=== PATIENT | female | born 1965 | race American Indian/Alaskan Native ===

== ENCOUNTER 2016-04-06 08:56 | Emergency (ER) | payer BC ==
[2016-04-06 09:37] VITALS: BP 139/96
[2016-04-06] MEDS ORDERED: TRIMOX PO ONE ×2 (10:04→10:38)
[2016-04-06] MEDS ORDERED: MOTRIN PO ONE (10:05)
--- NOTE | 2016-04-06 10:05 | Emergency Department Report ---
ED ENT HPI - General Chief complaint: Earache Stated complaint: LFT EAR PAIN Time Seen by Provider: 04/06/16 10:01 Source: patient Mode of arrival: Ambulatory Limitations: No Limitations - History of Present Illness Initial comments: 50-year-old female with past medical history hypertension diabetes hypercholesterolemia surgical history of gallbladder removal and appendectomy myomectomy questionable if she menopausal comes in for complaint of left ear pain since Wednesday night. She reports that pain started off as achy now sharp and shooting it comes and goes. He is taken Tylenol and Motrin without any relief. MD complaint: ear pain - Related Data Previous Rx's Medication Instructions Recorded Last Taken Type Amoxicillin [Amoxicillin TAB] 875 mg PO BID #14 tablet 04/06/16 Unknown Rx Ibuprofen [Motrin 800 MG tab] 800 mg PO Q8HR PRN #30 tablet 04/06/16 Unknown Rx Allergies Allergy/AdvReac Type Severity Reaction Status Date / Time No Known Allergies Allergy Unverified 10/10/15 08:56 ED Dental HPI - General Chief complaint: Earache Stated complaint: LFT EAR PAIN Time Seen by Provider: 04/06/16 10:01 Source: patient Mode of arrival: Ambulatory Limitations: No Limitations - Related Data Previous Rx's Medication Instructions Recorded Last Taken Type Amoxicillin [Amoxicillin TAB] 875 mg PO BID #14 tablet 04/06/16 Unknown Rx Ibuprofen [Motrin 800 MG tab] 800 mg PO Q8HR PRN #30 tablet 04/06/16 Unknown Rx Allergies Allergy/AdvReac Type Severity Reaction Status Date / Time No Known Allergies Allergy Unverified 10/10/15 08:56 ED Review of Systems ROS: Stated complaint: LFT EAR PAIN Other details as noted in HPI Constitutional: no symptoms reported ENT: ear pain (left ear). denies: throat pain, dental pain, congestion Respiratory: denies: cough (left ear), shortness of breath Cardiovascular: denies: chest pain ED Past Medical Hx - Past Medical History Previous Medical History?: Yes Hx Hypertension: Yes Hx Diabetes: Yes Additional medical history: Elevated Cholesterol - Surgical History Past Surgical History?: Yes Hx Cholecystectomy: Yes Hx Appendectomy: Yes - Social History Smoking Status: Never Smoker Substance Use Type: None - Medications Home Medications: Home Medications Medication Instructions Recorded Confirmed Last Taken Type Amoxicillin [Amoxicillin TAB] 875 mg PO BID #14 tablet 01/16/17 Unknown Rx Ibuprofen [Motrin 800 MG tab] 800 mg PO Q8HR PRN #30 tablet 04/06/16 Unknown Rx ED Physical Exam - General Limitations: No Limitations General appearance: alert, in no apparent distress - Head Head exam: Present: atraumatic, normocephalic - Expanded ENT Exam Expanded TM/Canal exam: Bulging: Left TM, Loss of Landmarks: Left TM - Neck Neck exam: Absent: tenderness, lymphadenopathy ED Course Vital Signs 04/06/16 09:35 Temperature 98.6 F Pulse Rate 64 Respiratory 16 Rate Blood Pressure 139/96 O2 Sat by Pulse 100 Oximetry ED Medical Decision Making - Medical Decision Making Patient's been evaluated with his provider in fast track. Based on physical examination noticed that she has a left ear otitis media. We will treat patient accordingly with amoxicillin 875 mg twice a day for 10 days. We will give her first dose in fast track as well as ibuprofen 800 mg now and this discharged her on ibuprofen 800 mg 3 times a day when necessary for the pain. Patient will need to follow-up the primary care provider he does not get better within 3-5 days. He realized understanding. Critical care attestation.: If time is entered above; I have spent that time in minutes in the direct care of this critically ill patient, excluding procedure time. ED Disposition Clinical Impression: Otitis media Qualifiers: Otitis media type: suppurative Laterality: left Chronicity: acute Spontaneous tympanic membrane rupture: without spontaneous rupture Disposition: DISCHARGED TO HOME OR SELFCARE Is pt being admited?: No Does the pt Need Aspirin: No Condition: Stable Instructions: Otitis Media (ED) Additional Instructions: Complete antibiotics as prescribed. Use ibuprofen when necessary for pain. Support and to follow her primary care doctor in 3-5 days if does not improve or gets worse. Prescriptions: Amoxicillin [Amoxicillin TAB] 875 mg PO BID #14 tablet Ibuprofen [Motrin 800 MG tab] 800 mg PO Q8HR PRN #30 tablet PRN Reason: Pain Referrals: SHELLI SINGLETON MD [Staff Physician] - 3-5 Days Forms: Work/School Release Form(ED)
== END 2016-04-06 10:41 | disposition home or self-care (01) ==
LOC: ED 08:56
DX: H66.002 Acute suppurative otitis media without spontaneous rupture of ear drum, left ear (principal); I10 Essential (primary) hypertension; E11.9 Type 2 diabetes mellitus without complications; E78.00 Pure hypercholesterolemia, unspecified
CPT/HCPCS: 99282

== ENCOUNTER 2016-10-09 08:28 | Outpatient (CLI) | payer BC ==
--- NOTE | 2016-10-09 08:58 | Mammography Report ---
Bilateral mammogram: Compared to 10/10/15. CAD study utilized. Findings: Predominance of adipose tissue bilaterally. No mass or microcalcification. Benign axillary nodes. Impression: Benign findings. Annual followup recommended. BI-RADS CATEGORY: 2 = Benign ACR BI-RADS MAMMOGRAPHIC CODES: 0 = Needs additional imaging evaluation; 1 = Negative; 2 = Benign; 3 = Probably benign; 4 = Suspicious; 5 = Malignant; 6 = Known biopsy-proven malignancy COMMENT: 1. Dense breast tissue, i.e., adenosis, fibrocystic changes, etc., may obscure an underlying neoplasm. 2. Approximately 10% of cancers are not detected with mammography. 3. A negative mammography report should not delay biopsy if a clinically suspicious mass is present. COMMENT: Patient follow-up letters are generated in [employer].
== END 2016-10-09 08:29 | disposition home or self-care (01) ==
LOC: MAMMO 08:28
PROVIDERS: ATTEND Obstetrics & Gynecology
DX: Z12.31 Encounter for screening mammogram for malignant neoplasm of breast (principal); I10 Essential (primary) hypertension
CPT/HCPCS: 77067; G0202

== ENCOUNTER 2017-10-15 08:03 | Outpatient (CLI) | payer BC ==
--- NOTE | 2017-10-15 08:58 | Mammography Report ---
Bilateral mammogram: Compared to 10/09/16. CAD study utilized. Findings: Predominance of adipose tissue bilaterally. No mass or microcalcification. Benign calcifications. Benign axilla. Impression: Benign findings. Annual followup recommended. BI-RADS CATEGORY: 2 = Benign ACR BI-RADS MAMMOGRAPHIC CODES: 0 = Needs additional imaging evaluation; 1 = Negative; 2 = Benign; 3 = Probably benign; 4 = Suspicious; 5 = Malignant; 6 = Known biopsy-proven malignancy COMMENT: 1. Dense breast tissue, i.e., adenosis, fibrocystic changes, etc., may obscure an underlying neoplasm. 2. Approximately 10% of cancers are not detected with mammography. 3. A negative mammography report should not delay biopsy if a clinically suspicious mass is present. COMMENT: Patient follow-up letters are generated in [employer].
== END 2017-10-15 08:04 | disposition home or self-care (01) ==
LOC: MAMMO 08:03
PROVIDERS: ATTEND Obstetrics & Gynecology
DX: Z12.31 Encounter for screening mammogram for malignant neoplasm of breast (principal); I10 Essential (primary) hypertension; Z90.49 Acquired absence of other specified parts of digestive tract; Z90.89 Acquired absence of other organs
CPT/HCPCS: 77067

== ENCOUNTER 2018-10-18 08:55 | Outpatient (CLI) | payer BC ==
--- NOTE | 2018-10-18 11:04 | Mammography Report ---
BILATERAL DIGITAL SCREENING MAMMOGRAM WITH CAD INDICATION: Routine screening mammography. TECHNIQUE: Digital bilateral 2D mammography was obtained in the craniocaudal and mediolateral obliq ue projections. This examination was interpreted with the benefit of Computer-Aided Detection analysi s. COMPARISON: 10/15/2017 FINDINGS: Breast Density: The breasts are heterogeneously dense, which may obscure small masses. No mass, architectural distortion or suspicious calcifications. IMPRESSION:No mammographic evidence of malignancy. BI-RADS Category 1: Negative. No mammographic evidence of malignancy. Recommend routine screening m ammography in one year. A "normal" or negative report should not discourage follow up or biopsy of a clinically significant f inding. A written summary of these findings will be mailed to the patient. The patient will be entered into a mammography reporting system which will generate a reminder letter for the patient's next appointmen t at the appropriate interval. The [employer] recommends yearly mammograms starting at age 40 and continuing as l beba as a woman is in good health. Breast MRI is recommended for women with an approximate 20-25% or greater lifetime risk of breast cancer, including women with a strong family history of breast or ova sadia cancer or who have been treated for Hodgkin's disease. Signer Name: Uvaldo Jj MD Signed: 10/18/2018 10:59 AM Workstation Name: [id number]
== END 2018-10-18 08:56 | disposition home or self-care (01) ==
LOC: MAMMO 08:55
PROVIDERS: ATTEND Obstetrics & Gynecology
DX: Z12.31 Encounter for screening mammogram for malignant neoplasm of breast (principal); I10 Essential (primary) hypertension
CPT/HCPCS: 77067

== ENCOUNTER 2019-10-25 09:55 | Outpatient (CLI) | payer BC ==
--- NOTE | 2019-10-25 12:14 | Mammography Report ---
DIGITAL SCREENING MAMMOGRAM WITH CAD, 10/25/2019 INDICATION: Routine screening mammography. TECHNIQUE: Digital bilateral 2D mammography was obtained in the craniocaudal and mediolateral obliq ue projections. This examination was interpreted with the benefit of Computer-Aided Detection analysi s. COMPARISON: 10/18/2018, 10/16/2007 FINDINGS: Breast Density: The breasts are heterogeneously dense, which may obscure small masses. There is no evidence of dominant mass, suspicious calcifications or architectural distortion in eithe r breast. IMPRESSION: Follow up recommendation: Routine yearly BI-RADS Category 1: Negative. A "normal" or negative report should not discourage follow up or biopsy of a clinically significant f inding. A written summary of these findings will be mailed to the patient. The patient will be entered into a mammography reporting system which will generate a reminder letter for the patient's next appointmen t at the appropriate interval. The [employer] recommends yearly mammograms starting at age 40 and continuing as l beba as a woman is in good health. Breast MRI is recommended for women with an approximate 20-25% or greater lifetime risk of breast cancer, including women with a strong family history of breast or ova sadia cancer or who have been treated for Hodgkin's disease. Signer Name: Marques Cruz MD Signed: 10/25/2019 12:10 PM Workstation Name: [id number]
== END 2019-10-25 09:56 | disposition home or self-care (01) ==
LOC: MAMMO 09:55
PROVIDERS: ATTEND Obstetrics & Gynecology
DX: Z12.31 Encounter for screening mammogram for malignant neoplasm of breast (principal)
CPT/HCPCS: 77067

== ENCOUNTER 2020-10-31 08:03 | Outpatient (CLI) | payer BC ==
--- NOTE | 2020-10-31 11:01 | Mammography Report ---
DIGITAL SCREENING MAMMOGRAM WITH CAD, 10/31/2020 CLINICAL INFORMATION / INDICATION: Routine screening mammography. SCREENING MAMMOGRAM TECHNIQUE: Digital bilateral 2D mammography was obtained in the craniocaudal and mediolateral obliqu e projections. This examination was interpreted with the benefit of Computer-Aided Detection analysis . COMPARISON: 10/25/2019 FINDINGS: Breast Density: There are scattered areas of fibroglandular density. No dominant mass, suspicious calcifications, or architectural distortion in either breast. IMPRESSION: No mammographic evidence of malignancy. Follow up recommendation: Routine yearly BI-RADS Category 1: Negative. A "normal" or negative report should not discourage follow up or biopsy of a clinically significant f inding. A written summary of these findings will be mailed to the patient. The patient will be entered into a mammography reporting system which will generate a reminder letter for the patient's next appointmen t at the appropriate interval. The [employer] recommends yearly mammograms starting at age 40 and continuing as l beba as a woman is in good health. Breast MRI is recommended for women with an approximate 20-25% or greater lifetime risk of breast cancer, including women with a strong family history of breast or ova sadia cancer or who have been treated for Hodgkin's disease. Signer Name: Guillermo Amador MD Signed: 10/31/2020 10:56 AM Workstation Name: [id number]
== END 2020-10-31 08:04 | disposition home or self-care (01) ==
LOC: MAMMO 08:03
PROVIDERS: ATTEND Obstetrics & Gynecology
DX: Z12.31 Encounter for screening mammogram for malignant neoplasm of breast (principal)
CPT/HCPCS: 77067

== ENCOUNTER 2021-11-10 08:58 | Outpatient (CLI) | payer BC ==
--- NOTE | 2021-11-12 10:04 | Mammography Report ---
DIGITAL SCREENING MAMMOGRAM WITH CAD, 11/10/2021 CLINICAL INFORMATION / INDICATION: Routine screening mammography. SCREENING MAMMOGRAM TECHNIQUE: Digital bilateral 2D mammography was obtained in the craniocaudal and mediolateral obliqu e projections. This examination was interpreted with the benefit of Computer-Aided Detection analysis . COMPARISON: October 31, 2020, October 25, 2019, October 18, 2018 FINDINGS: Breast Density: There are scattered areas of fibroglandular density. No dominant mass, suspicious calcifications, or architectural distortion in the right breast. There is a focal asymmetry noted within the anterior/middle third of the left central, slightly upper breast. This focal asymmetry is approximately 4 to 6 cm from the nipple. IMPRESSION: Indeterminate focal asymmetry within the anterior/middle third of the left central, sligh tly upper breast. Spot compression views recommended for further evaluation. Follow up recommendation: Special View: Spot Compression BI-RADS Category 0: INCOMPLETE. Needs additional imaging evaluation and/or prior mammograms for etta rison. A "normal" or negative report should not discourage follow up or biopsy of a clinically significant f inding. A written summary of these findings will be mailed to the patient. The patient will be entered into a mammography reporting system which will generate a reminder letter for the patient's next appointmen t at the appropriate interval. The [employer] recommends yearly mammograms starting at age 40 and continuing as l beba as a woman is in good health. Breast MRI is recommended for women with an approximate 20-25% or greater lifetime risk of breast cancer, including women with a strong family history of breast or ova sadia cancer or who have been treated for Hodgkin's disease. Signer Name: Modesto Churchill DO Signed: 11/12/2021 10:00 AM Workstation Name: [id number]
== END 2021-11-10 08:59 | disposition home or self-care (01) ==
LOC: MAMMO 08:58
PROVIDERS: ATTEND Obstetrics & Gynecology
DX: Z12.31 Encounter for screening mammogram for malignant neoplasm of breast (principal)
CPT/HCPCS: 77067

== ENCOUNTER 2021-11-27 08:51 | Outpatient (CLI) | payer BC ==
--- NOTE | 2021-11-27 10:46 | Ultrasound Report ---
LEFT DIGITAL DIAGNOSTIC MAMMOGRAM CONVENTIONAL, 11/27/2021 LEFT LIMITED BREAST ULTRASOUND CLINICAL INFORMATION / INDICATION: Patient presents as a callback from screening mammogram for furthe r evaluation of a focal asymmetry in the left breast. INCONCLUSIVE MAMMOGRAM R92.2 TECHNIQUE: Digital left mammographic imaging was performed. Spot compression views were obtained. [place]uerre ited ultrasound was performed. COMPARISON: Prior mammogram 11/10/2021 FINDINGS: Breast Density: There are scattered areas of fibroglandular density. MAMMOGRAPHIC FINDINGS: The previously seen asymmetry in the central left breast, anterior to middle d epth, is less conspicuous on spot compression views and likely reflects overlapping fibroglandular ti ssue. However, there is a 9 mm focal asymmetry in the upper inner quadrant of the left breast, middle depth. Targeted ultrasound was performed for further evaluation. ULTRASOUND FINDINGS: Targeted ultrasound evaluation was performed of the area of interest. Correspo nding with the mammographic finding, there is a probable cluster of cysts in the left breast 10:00 po sition located 5 cm from nipple measuring up to 6 x 3 x 4 mm. No internal vascularity is demonstrated . There is an additional incidental probable cyst cluster in the 11:00 position located 8 cm from nip ple measuring up to 5 x 3 x 4 mm. No internal vascularity is demonstrated. IMPRESSION: 1. A probable cluster of cysts in the 10:00 left breast corresponds with a focal asymmetry on mammogr am and is considered probably benign. Recommend left diagnostic mammogram and left breast ultrasound in 6 months to ensure stability. Follow up recommendation: Short term follow up in 6 months. BI-RADS Category 3: PROBABLY BENIGN. Followup in 6 months. A "normal" or negative report should not discourage follow up or biopsy of a clinically significant f inding. A written summary of these findings will be mailed to the patient. The patient will be entered into a mammography reporting system which will generate a reminder letter for the patient's next appointmen t at the appropriate interval. According to the [employer], yearly mammograms are recommended starting at age 40 and continuing as long as a woman is in good health. Breast MRI is recommended for women with an mildred roximately 20-25% or greater lifetime risk of breast cancer, including women with a strong family his tory of breast or ovarian cancer and women who have been treated for Hodgkin's disease. Signer Name: Mary Lou Carson MD Signed: 11/27/2021 10:42 AM Workstation Name: [id number]
== END 2021-11-27 08:52 | disposition home or self-care (01) ==
LOC: SPVWC 08:51
PROVIDERS: ATTEND Obstetrics & Gynecology
DX: N64.89 Other specified disorders of breast (principal); R92.2 Inconclusive mammogram